=== PATIENT | female | born 1980 | race American Indian/Alaskan Native ===

== ENCOUNTER 2017-01-20 18:38 | Emergency (ER) | payer OTHER ==
[2017-01-20 20:07] LABS: Hematocrit 32.3 % (30.3-42.9); Hemoglobin 10.4 gm/dl (10.1-14.3); Mean Corpuscular HGB Conc 32 % (30-34); Mean Corpuscular Volume 80 fl (79-97); Platelet Count 286 K/mm3 (140-440); Red Blood Count 4.06 M/mm3 (3.65-5.03); Red Cell Distribution Width 16.7 % (13.2-15.2); White Blood Count 6.3 K/mm3 (4.5-11.0)
[2017-01-20 20:17] LABS: Anion Gap 14 mmol/L; BUN/Creatinine Ratio 14; Blood Urea Nitrogen 10 mg/dL (7-17); Calcium 8.4 mg/dL (8.4-10.2); Carbon Dioxide 28 mmol/L (22-30); Chloride 102.3 mmol/L (98-107); Glucose 96 mg/dL (65-100); Sodium 140 mmol/L (137-145)
[2017-01-20 20:22] LABS: Mean Corpuscular Hemoglobin 26 pg (28-32)
[2017-01-20 20:25] LABS: Basophils % (Auto) 0.6 % (0.0-1.8); Eosinophils % (Auto) 3.6 % (0.0-4.3)
[2017-01-20 20:33] LABS: Bilirubin,Urine NEG (Negative); Blood,Urine NEG (Negative); Ketones,Urine NEG (Negative); Leukocyte Esterase,Urine TR (Negative); Mucus,Urine FEW /HPF; Nitrite,Urine NEG (Negative); Protein,Urine <15 mg/dL mg/dL (Negative); Urobilinogen,Urine < 2.0 mg/dL (<2.0)
[2017-01-20] MEDS ORDERED: NACL 0.9% 1000 ML 1,000 ML IV ONE (20:54)
--- NOTE | 2017-01-20 21:05 | Cat Scan Report ---
FINAL REPORT EXAM: CT HEAD/BRAIN WO CON HISTORY: CASANOVA TECHNIQUE: Noncontrast serial axial images from skull base to vertex. PRIORS: None. FINDINGS: There is no mass effect or midline shift. There are no abnormal intra or extra-axial fluid collections. Cortical sulci and lateral ventricles are within normal limits for size and configuration. Basilar cisterns are patent. No acute intracranial hemorrhage is identified. Visualized paranasal sinuses and mastoid air cells are well aerated. No acute osseous abnormality is identified. IMPRESSION: 1. No abnormal mass or acute intracranial hemorrhage is identified.
[2017-01-20] MEDS ORDERED: TORADOL IV ONE (21:20)
[2017-01-20] MEDS ORDERED: BENADRYL IV ONE (21:20)
[2017-01-20] MEDS ORDERED: FIORICET PO ONE (21:20)
--- NOTE | 2017-01-20 22:38 | XRay Report ---
FINAL REPORT EXAM: XR CHEST ROUTINE 2V HISTORY: SOB TECHNIQUE: PA and lateral chest radiographs PRIORS: None. FINDINGS: No focal consolidations are seen in the lungs and there are no pleural effusions.The cardiomediastinal silhouette is within normal limits for size and contour. No acute osseous abnormality is identified. IMPRESSION: 1. No definite radiographic evidence of acute cardiopulmonary disease. 2. No focal infiltrate is identified.
--- NOTE | 2017-01-21 00:06 | Emergency Department Report ---
ED Headache HPI - General Chief Complaint: Headache Stated Complaint: CASANOVA/SOB/BODY ACHES Source: patient Exam Limitations: no limitations - History of Present Illness Initial Comments: 36 year old female presents to ED with headache and mild intermittent SOB. patient states she has history of migraines but today migraine is worst than usual. patient is alert and oriented to person place time and self. patient states she has mild SOB that comes and goes x1 day with headache. patient denies chest pain. patient is stable, neurologically intact and in no acute distress. patient has normal resp rate and normal O2 sat on room air. Timing/Duration: 24 hours, increasing Quality: moderate Head Injury Location: global Recent Head Trauma: occasional headaches Modifying Factors: improves with: exposure to light Associated Symptoms: denies: confusion, fatigue, facial pain, fever/chills, flushing, loss of consciousness, nausea/vomiting, nasal congestion, nasal drainage, numbness in legs/feet, seizures, sinus infection, stiff neck, vision changes, weakness Allergies/Adverse Reactions: Allergies promethazine HCl [From Phenergan] Allergy (Verified 01/20/17 19:18) Unknown Home Medications: Ambulatory Orders Meloxicam [Mobic] 7.5 mg PO QDAY #5 tablet 01/21/17 ED Review of Systems ROS: Stated complaint: CASANOVA/SOB/BODY ACHES Other details as noted in HPI Constitutional: denies: chills, fever, weakness Eyes: denies: eye pain, eye discharge, vision change ENT: denies: ear pain, throat pain Respiratory: shortness of breath. denies: cough, stridor, wheezing Cardiovascular: denies: chest pain, palpitations Endocrine: no symptoms reported Gastrointestinal: nausea. denies: abdominal pain, vomiting, diarrhea Genitourinary: denies: urgency, dysuria, discharge Musculoskeletal: denies: back pain, joint swelling, arthralgia Skin: denies: rash, lesions Neurological: headache. denies: weakness, numbness, paresthesias, confusion, abnormal gait, vertigo Psychiatric: as per HPI Hematological/Lymphatic: denies: easy bleeding, easy bruising ED Past Medical Hx - Past Medical History Previous Medical History?: Yes Hx Diabetes: Yes Additional medical history: fibromyalgia - Surgical History Hx Cholecystectomy: Yes Additional Surgical History: [id number] - Social History Smoking Status: Former Smoker Substance Use Type: Alcohol - Medications Home Medications: Home Medications Medication Instructions Recorded Confirmed Last Taken Type Meloxicam [Mobic] 7.5 mg PO QDAY #5 tablet 01/21/17 Unknown Rx ED Physical Exam - General Limitations: No Limitations General appearance: alert, in no apparent distress - Head Head exam: Present: atraumatic, normocephalic, normal inspection - Eye Eye exam: Present: normal appearance, EOMI Pupils: Present: normal accommodation - ENT ENT exam: Present: mucous membranes moist - Neck Neck exam: Present: normal inspection, full ROM. Absent: tenderness - Respiratory Respiratory exam: Present: normal lung sounds bilaterally. Absent: respiratory distress, wheezes, rales, chest wall tenderness, decreased breath sounds - Cardiovascular Cardiovascular Exam: Present: regular rate, normal rhythm. Absent: systolic murmur, diastolic murmur, rubs, gallop - GI/Abdominal GI/Abdominal exam: Present: soft, normal bowel sounds. Absent: distended, tenderness, guarding - Extremities Exam Extremities exam: Present: normal inspection, full ROM. Absent: tenderness - Back Exam Back exam: Present: normal inspection, full ROM. Absent: tenderness - Neurological Exam Neurological exam: Present: alert, oriented X3, normal gait - Expanded Neurological Exam Expanded Neurological exam: Absent: innattentive, protecting the airway Patient oriented to: Present: person, place, time Speech: Present: fluid speech Cranial nerves: EOM's Intact: Normal Sensory exam: Upper Extremity Light Touch: Normal, Lower Extremity Light Touch: Normal Motor strength exam: RUE: 5, LUE: 5, RLE: 5, LLE: 5 Best Eye Response (Kylie): (4) open spontaneously Best Motor Response (Kylie): (6) obeys commands Best Verbal Response (Kylie): (5) oriented Kylie Total: 15 - Psychiatric Psychiatric exam: Present: normal affect, normal mood - Skin Skin exam: Present: warm, dry, intact, normal color. Absent: rash ED Course Vital Signs 01/20/17 01/21/17 19:19 00:44 Temperature 98.7 F Pulse Rate 76 70 Respiratory 18 16 Rate Blood Pressure 134/80 118/69 O2 Sat by Pulse 100 98 Oximetry ED Medical Decision Making - Lab Data Result diagrams: 01/20/17 19:39 01/20/17 19:39 Labs 01/20/17 01/20/17 01/20/17 19:39 19:39 19:39 WBC 6.3 RBC 4.06 Hgb 10.4 Hct 32.3 MCV 80 MCH 26 L MCHC 32 RDW 16.7 H Plt Count 286 Lymph % (Auto) 37.5 H [place] % (Auto) 6.0 Eos % (Auto) 3.6 Baso % (Auto) 0.6 Lymph # 2.4 [place] # 0.4 Eos # 0.2 Baso # 0.0 Seg Neutrophils % 52.3 Seg Neutrophils # 3.3 Sodium 140 Potassium 4.0 Chloride 102.3 Carbon Dioxide 28 Anion Gap 14 BUN 10 Creatinine 0.7 Estimated GFR > 60 BUN/Creatinine Ratio 14 Glucose 96 Calcium 8.4 Troponin T C-Reactive Protein 0.30 HCG, Qual Negative Urine Color Urine Turbidity Urine pH Ur Specific [place] Urine Protein Urine Glucose (UA) Urine Ketones Urine Blood Urine Nitrite Urine Bilirubin Urine Urobilinogen Ur Leukocyte Esterase Urine WBC (Auto) Urine RBC (Auto) U Epithel Cells (Auto) Urine Mucus 01/20/17 01/20/17 20:05 21:30 WBC RBC Hgb Hct MCV MCH MCHC RDW Plt Count Lymph % (Auto) [place] % (Auto) Eos % (Auto) Baso % (Auto) Lymph # [place] # Eos # Baso # Seg Neutrophils % Seg Neutrophils # Sodium Potassium Chloride Carbon Dioxide Anion Gap BUN Creatinine Estimated GFR BUN/Creatinine Ratio Glucose Calcium Troponin T < 0.010 C-Reactive Protein HCG, Qual Urine Color Yellow Urine Turbidity Clear Urine pH 6.0 Ur Specific [place] 1.009 Urine Protein <15 mg/dl Urine Glucose (UA) Neg Urine Ketones Neg Urine Blood Neg Urine Nitrite Neg Urine Bilirubin Neg Urine Urobilinogen < 2.0 Ur Leukocyte Esterase Tr Urine WBC (Auto) 2.0 Urine RBC (Auto) 4.0 U Epithel Cells (Auto) 2.0 Urine Mucus Few - EKG Data Interpretation: normal EKG - Radiology Data Radiology results: report reviewed CT brain No abnormal mass or acute intracranial hemorrhage is identified. XR chest no definite radiographic evidence of acute cardiopulmonary disease. No focal infiltrate is identified. - Medical Decision Making 36 year old female presents to ED with headache, nausea, photophobia and hx of migraine. patient also states she has mild intermittent SOB present that started with headache. patient has negative imaging studies of XR chest and CT brain. patient has unremarkable labs with normal WBC, normal CRP, normal troponin and Normal sinus rhythm EKG and negative preg test. patient has no labored breathing with normal Resp rate and normal O2 saturation and is in no acute distress. Critical care attestation.: If time is entered above; I have spent that time in minutes in the direct care of this critically ill patient, excluding procedure time. ED Disposition Clinical Impression: Migraine aura, persistent Qualifiers: Status migrainosus presence: without status migrainosus Intractability: not intractable Qualified Code(s): G43.509 - Persistent migraine aura without cerebral infarction, not intractable, without status migrainosus Disposition: DC- TO HOME OR SELFCARE Is pt being admited?: No Does the pt Need Aspirin: No Condition: Stable Instructions: Migraine Headache (ED) Prescriptions: Meloxicam [Mobic] 7.5 mg PO QDAY #5 tablet Referrals: PRIMARY CARE, [Primary Care Provider] - 3-5 Days
[2017-01-21 00:49] VITALS: BP 118/69
== END 2017-01-21 00:49 | disposition home or self-care (01) ==
LOC: ED 18:38
DX: G43.509 Persistent migraine aura without cerebral infarction, not intractable, without status migrainosus (principal); E11.9 Type 2 diabetes mellitus without complications
CPT/HCPCS: 36415; 70450; 71020; 80048; 81001; 84484; 84703; 85025; 86140; 93005; 93010; 96361; 96374; 96375; 99284; J1200; J1885; J7030

== ENCOUNTER 2017-03-17 22:29 | Emergency (ER) | payer OTHER ==
[2017-03-17 22:38] VITALS: BP 147/92
[2017-03-17 23:02] LABS: Basophils % (Auto) 0.9 % (0.0-1.8); Eosinophils % (Auto) 4.4 % (0.0-4.3); Hematocrit 34.4 % (30.3-42.9); Hemoglobin 10.9 gm/dl (10.1-14.3); Mean Corpuscular HGB Conc 32 % (30-34); Mean Corpuscular Hemoglobin 25 pg (28-32); Mean Corpuscular Volume 79 fl (79-97); Platelet Count 305 K/mm3 (140-440); Red Blood Count 4.38 M/mm3 (3.65-5.03); Red Cell Distribution Width 17.1 % (13.2-15.2); White Blood Count 5.3 K/mm3 (4.5-11.0)
[2017-03-17 23:22] LABS: Alanine Aminotransferase 12 units/L (7-56); Alkaline Phosphatase 47 units/L (35-129); Anion Gap 15 mmol/L; BUN/Creatinine Ratio 14; Blood Urea Nitrogen 10 mg/dL (7-17); Calcium 8.5 mg/dL (8.4-10.2); Carbon Dioxide 26 mmol/L (22-30); Chloride 100.6 mmol/L (98-107); Glucose 107 mg/dL (65-100); Lipase 17 units/L (13-60); Potassium 3.9 mmol/L (3.6-5.0); Sodium 138 mmol/L (137-145); Total Protein 8.1 g/dL (6.3-8.2)
[2017-03-17 23:40] LABS: Albumin 3.9 g/dL (3.9-5); Albumin/Globulin Ratio 0.9 %
== END 2017-03-18 05:20 | disposition left against medical advice (07) ==
LOC: ED 22:29
DX: M79.1 Myalgia (principal); Z53.21 Procedure and treatment not carried out due to patient leaving prior to being seen by health care provider
CPT/HCPCS: 36415; 80053; 83690; 84703; 85025